=== PATIENT | female | born 1970 | race American Indian/Alaskan Native ===

== ENCOUNTER 2017-08-26 13:38 | Outpatient (CLI) | payer OTHER ==
--- NOTE | 2017-08-28 18:13 | Magnetic Resonance Report ---
MR scan of the cranium was performed without contrast. Pulse sequences included: 1. T1 weighted sagittal and axial images without contrast 2. T2 weighted axial and coronal images 3. FLAIR axial images 4. Diffusion-weighted axial images 5. Apparent diffusion coefficient images Views of the posterior fossa showed a normal craniocervical junction. Cerebellar pontine angles were normal with normal seventh-eighth nerve complexes. Brainstem and cerebellum were normal. The ventricular system showed no dilatation or distortion. Images of the hemispheres showed occasional areas of increased signal in the ruiz radiata. There was a left maxillary sinus mucus retention cyst. Flow voids in the sun'aq of Dean, orbits, pituitary and basal ganglia were normal. Impression: Mildly abnormal MR scan of the cranium without contrast. 1. mild ruiz radiate areas of increased signal -- may be related to migraine and unlikely to be clinically significant 2. left maxillary sinus mucus retention cyst
== END 2017-08-26 13:39 | disposition home or self-care (01) ==
LOC: SPVIMAG 13:38
PROVIDERS: ATTEND Specialist
DX: J34.1 Cyst and mucocele of nose and nasal sinus (principal); R51 Headache; R93.8 Abnormal findings on diagnostic imaging of other specified body structures
CPT/HCPCS: 70551

== ENCOUNTER 2020-09-05 13:44 | Outpatient (CLI) | payer OTHER | END 2020-09-05 13:45 | disposition home or self-care (01) | LOC: SPVWC 13:44 | PROVIDERS: ATTEND Nurse Practitioner Family | DX: R92.8 Other abnormal and inconclusive findings on diagnostic imaging of breast (principal) | CPT/HCPCS: 77066 ==

== ENCOUNTER 2020-09-19 11:14 | Outpatient (CLI) | payer OTHER | END 2020-09-19 11:15 | disposition home or self-care (01) | LOC: SPVWC 11:14 | PROVIDERS: ATTEND Nurse Practitioner Family | DX: N63.20 Unspecified lump in the left breast, unspecified quadrant (principal) ==

== ENCOUNTER 2021-10-03 11:16 | Outpatient (CLI) | payer OTHER ==
--- NOTE | 2021-10-04 16:20 | Mammography Report ---
DIGITAL SCREENING MAMMOGRAM WITH TOMOSYNTHESIS WITH CAD, 10/03/2021 CLINICAL INFORMATION / INDICATION: Routine Screening Mammography. TECHNIQUE: Digital bilateral 2D and 3D mammography with tomosynthesis was obtained in the craniocaud al and mediolateral oblique projections. Computer-Aided Detection (CAD) analysis was used for interp retation of this study. COMPARISON: 09/05/2020 FINDINGS: Breast Density: The breasts are heterogeneously dense, which may obscure small masses. No dominant mass, suspicious calcifications, or architectural distortion in the left breast. Partially imaged nodule far posteriorly located on the CC view in the midline 11 cm from the nipple. This may be far superiorly and posteriorly located on the MLO view. IMPRESSION: Partially imaged right breast nodule. Follow up recommendation: Special View: Spot BI-RADS Category 0: INCOMPLETE. Needs additional imaging evaluation and/or prior mammograms for liz rison. A "normal" or negative report should not discourage follow up or biopsy of a clinically significant f inding. A written summary of these findings will be mailed to the patient. The patient will be entered into a mammography reporting system which will generate a reminder letter for the patient's next appointmen t at the appropriate interval. The [employer] recommends yearly mammograms starting at age 40 and continuing as l kapil as a woman is in good health. Breast MRI is recommended for women with an approximate 20-25% or greater lifetime risk of breast cancer, including women with a strong family history of breast or ova sid cancer or who have been treated for Hodgkin's disease. Signer Name: Matt Gilbert MD Signed: 10/04/2021 4:15 PM Workstation Name: [email or web address]
== END 2021-10-03 11:17 | disposition home or self-care (01) ==
LOC: SPVWC 11:16
PROVIDERS: ATTEND Nurse Practitioner Family
DX: Z12.31 Encounter for screening mammogram for malignant neoplasm of breast (principal); N64.89 Other specified disorders of breast
CPT/HCPCS: 77067

== ENCOUNTER 2021-12-03 12:19 | Outpatient (CLI) | payer OTHER ==
--- NOTE | 2021-12-03 15:29 | Mammography Report ---
DIGITAL DIAGNOSTIC MAMMOGRAM WITH CAD , 12/03/2021 CLINICAL INFORMATION / INDICATION: This is a callback for abnormal right screening mammogram TECHNIQUE: Digital right mammographic imaging was performed. Spot compression views were obtained. This examination was interpreted with the benefit of Computer-aided Detection analysis. COMPARISON: Prior mammograms including 10/03/2021, 09/05/2020 FINDINGS: Breast Density: The breasts are heterogeneously dense, which may obscure small masses. Spot compression imaging of the right breast in the 12:00 region show a focal asymmetry in the 12:00 position posterior depth. There is a biopsy clip associated with this focal asymmetry along the poste rior aspect. This focal asymmetry with associated biopsy clip appears grossly unchanged from prior ma mmogram dated 09/05/2020. An outside biopsy pathology report from 05/03/2020 was provided which was inte rpreted as "atypical T-cell infiltrate, favor reactive process". Given the lack of any significant interval change since 09/05/2020, no further imaging is required at t his time. IMPRESSION: No mammographic evidence of malignancy. Follow up recommendation: Back to schedule. BI-RADS Category 2: BENIGN. A "normal" or negative report should not discourage follow up or biopsy of a clinically significant f inding. A written summary of these findings will be mailed to the patient. The patient will be entered into a mammography reporting system which will generate a reminder letter for the patient's next appointmen t at the appropriate interval. According to the [employer], yearly mammograms are recommended starting at age 40 and continuing as long as a woman is in good health. Breast MRI is recommended for women with an ikm roximately 20-25% or greater lifetime risk of breast cancer, including women with a strong family his tory of breast or ovarian cancer and women who have been treated for Hodgkin's disease. Signer Name: Merary Davis MD Signed: 12/03/2021 3:24 PM Workstation Name: [email or web address]
--- NOTE | 2021-12-06 10:08 | Mammography Report ---
DEXA BONE DENSITY SCAN INDICATION / CLINICAL INFORMATION: OSTEOPOROSIS. 51 years Female COMPARISON: None available. LUMBAR SPINE, L1-L4: - Bone mineral density (BMD) = 0.851 g/cm2. - T-score = -1.8 - Z-score = -1.6 Change (%) since most recent prior (if available): None available. LEFT HIP, NECK : - Bone mineral density (BMD) = 0.751 g/cm2. - T-score = -0.9 - Z-score = -0.7 Change (%) since most recent prior (if available): None available. IMPRESSION: 1. WHO Classification: Osteopenia. Fracture Risk: Increased. 2. 10-Year Fracture Risk (FRAX) = Major Osteoporotic Not reported.% / Hip: Not reported.% FRAX generally not reported for patients with normal or osteoporotic BMD, in [id number] estela ents younger than age 50, or in patients undergoing pharmacotherapy BMD Reporting Guidelines (ISCD, 2015) BMD Reporting in Postmenopausal Women and in Men Age 50 and Older - T-scores are preferred. - The WHO densitometric classification is applicable. BMD Reporting in Females Prior to Menopause and in Males Younger Than Age 50 - Z-scores, not T-scores, are preferred. This is particularly important in children. - A Z-score of -2.0 or lower is defined as below the expected range for age, and a Z-score above -2.0 is within the expected range for age. - Osteoporosis cannot be diagnosed in men under age 50 on the basis of BMD alone. - The WHO diagnostic criteria may be applied to women in the menopausal transition. http://www.iscd.org/official-positions/5871-nhcc-zmfdwflz-positions-adult/ Signer Name: Som Martinez DO Signed: 12/06/2021 10:04 AM Workstation Name: [id number]
== END 2021-12-03 12:20 | disposition home or self-care (01) ==
LOC: MAMMO 12:19
PROVIDERS: ATTEND Family Medicine
DX: M85.88 Other specified disorders of bone density and structure, other site (principal); R92.8 Other abnormal and inconclusive findings on diagnostic imaging of breast; N95.1 Menopausal and female climacteric states; M81.0 Age-related osteoporosis without current pathological fracture
CPT/HCPCS: 77085